=== PATIENT | male | born 1960 | race Two or more races ===

== ENCOUNTER 2025-06-08 15:43 | Emergency (ER) | payer OTHER ==
[~2025-06-08] VITALS: Ht 177.8 cm; Wt 100.0 kg
[2025-06-08 15:44] VITALS: BP 128/80; PULSE 100; RESP 14; TEMP 97.2; O2SAT 100
--- NOTE | 2025-06-08 16:27 | ED.PDOC ---
Back pain HPI HPI Comments 65 year old male presents to the emergency department with a chief complaint of RT ribs pain s/p fall onset 2 days. Patient states he was walking, tripped, landed on a rock, hit RT ribs. He noticed pain worsens with exertion, deep breaths, coughing. No other symptoms or modifying factors present at this time. Denies LOC, head injury Denies fever chills Denies nausea vomiting diarrhea Denies numbness/tingling Chief Complaint: Rib Pain Time Seen by MD: 16:10 Reviewed Notes: Medications, Allergies Allergies: Coded Allergies: NO KNOWN ALLERGIES (Unverified , 06/08/25) Information Source: Patient Mode of Arrival: Ambulatory Timing: Days Duration: Since onset Severity: Moderate Prehospital treatment: None Quality: Sharp Onset: Fall Circumstance: Other History of: None Past Medical History PAST MEDICAL HISTORY: Denies Surgical History: Denies all surgeries Family History Family History: Reviewed,noncontributory to illness, No family hx of Cancer, No family hx of DM, No family hx of Heart aicha, No family hx of HTN, No family hx ofKidney aicha, No family hx of Liver aicha, No family hx of Lung aicha, No family hx of Stroke Social History Smoker: Non-Smoker Alcohol: Denies ETOH Use Drugs: Denies Drug Use Lives In: Home All Other Systems: Reviewed and Negative (as per HPI) Physical Exam General Appearance: Normal HEENT: Normal ENT Inspection, Pharynx Normal, TMs Normal Neck: Full Range of Motion, Non-Tender, Normal, Normal Inspection Respiratory: Chest Non-Tender, Lungs Clear, No Accessory Muscle Use, No Respiratory Distress, Normal Breath Sounds Cardiovascular: No Edema, No JVD, No Murmur, No Gallop, Normal Peripheral Pulses, Regular Rate/Rhythm Breast Exam: Deferred Gastrointestinal: No Organomegaly, Non Tender, No Pulsatile Mass, Normal Bowel Sounds, Soft Genitalia: Deferred Pelvic: Deferred Rectal: Deferred Extremities: No calf tenderness, Normal capillary refill, Normal inspection, Normal range of motion, Non-tender, No pedal edema Musculoskeletal : Apperance: Normal Neurologic: Alert, 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 Was a procedure done?: No Back Pain Differential Dx Differential Diagnosis: Fracture, Musculoskeletal Pain X-Ray, Labs, Meds, VS Vital Signs Date Time Temp Pulse Resp B/P (MAP) Pulse Ox O2 Delivery O2 Flow Rate FiO2 06/08/25 15:44 97.2 100 14 128/80 100 97.2 [place] [id number] Ph: [phone] DIAGNOSTIC IMAGING Diagnostic Imaging Report : [id number] Signed PATIENT: NIHARIKA DUKE ACCT: [id number] UNIT: [id number] : 1960 LOC: ER ROOM / BED: / AGE / SEX: 65 / M ADM STATUS: REG ER SERVICE 28 ORDERING PHYSICIAN: MARII WILKINSON NP PROCEDURE(s): RRIBS - R RIB XRAY REASON: r/o racture ORDER NUMBER(s): [id number], ACCESSION NUMBER(s): [id number] EXAMINATION: XY R RIB XRAY INDICATION: Trauma r/o racture COMPARISON: None TECHNIQUE: Frontal view of the chest and <5 views of the right ribs history FINDINGS/IMPRESSION: No focal consolidation, pleural effusion or significant pneumothorax. Normal cardiomediastinal silhouette. Linear lucency in the right 9th rib may represent a nondisplaced fracture versus artifact. Correlate with point tenderness. ATED BY: DEMETRA MUÑOZ MD DICTATED DATE/TIME: 06/08/251706 SIGNED BY: DEMETRA MUÑOZ MD SIGNED DATE/TIME: 06/08/251706 CC: X-Ray, Labs, Meds, VS Comment 65 year old male presents to the emergency department with a chief complaint of RT ribs pain s/p fall onset 2 days. Diagnostic imaging ordered by me and results interpreted by radiology : R RIB XRAY: IMPRESSION: No focal consolidation, pleural effusion or significant pneumothorax. Normal cardiomediastinal silhouette. Linear lucency in the right 9th rib may represent a nondisplaced fracture versus artifact. Correlate with point tenderness. On reevaluation, patient had symptomatic improvement. Patient is stable for discharge at this time. External notes reviewed. Test results and diagnostic imaging interpreted. All diagnostic findings, discharge care, education and instructions provided Follow-up with PCP in 2 to 3 days For pain patient was advised to take [id number] Tylenol ibuprofen Patient verbalized understanding and agreed to treatment plan Vital signs stable, afebrile, no acute distress noted Patient ambulatory with strong steady gait Advised to return precautions for any new or worsening symptoms, return to ER immediately for re-evaluation Patient is aware that the purpose of this visit was for an acute medical emergency requiring emergent stabilization. Chronic conditions, including malignancies have not been ruled out. Patient is instructed to follow up with PCP as directed and discharge instructions for continued care and workup. If unable to arrange follow-up, patient is to return to the emergency department for reassessment. Patient (parent or legal guardian if applicable) was given verbal and written discharge instructions and acknowledges understanding. Additional MDM Review of External, Non-ED records: External records reviewed. Discussion with independent historian (EMS, family) history obtained from the patient/parents (if applicable) at bedside Chronic conditions affecting care: None Social determinants of health affecting care: None Consideration of admission (observation or admission): I considered escalation of care to admission for this patient, however given the reassuring workup, the patient is safe for outpatient management. Discussion with the Radiology: No Tests considered but not performed: Prescription medication considered but not given: Time of 1ST Reevaluation: 16:40 Reevaluation 1ST: Improved Patient Education/Counseling: Diagnosis, Treatment Family Education/Counseling: No Family Present SEPSIS Sepsis Screen Date sepsis recognized/suspect: Jun 08, 2025 Time Sepsis recognized/suspect: 1546 Recent Procedure: No On Antibiotic Therapy: No Respiratory Rate >20: No Heart Rate >90: No Temp<36 C (96.8 F) or >38.3 C: No SBP <90 or MAP <65 mmHG: No New Acute Mental Status Change: No Is the patient on CPAP, BIPAP,: No Physician Orders R Rib Xray (06/08/25 16:29) Vital Signs Date Time Temp Pulse Resp B/P (MAP) Pulse Ox O2 Delivery O2 Flow Rate FiO2 06/08/25 15:44 97.2 100 14 128/80 100 97.2 Departure 1 Departure Time of Disposition: 17:45 Impression: Primary Impression: Fracture of ninth rib Disposition: 01 HOME / SELF CARE / HOMELESS Condition: Stable Discharged With: Self Critical Care Note Critical Care Time?: No Stability Stability form required: No Heart Score Heart Score: Heart Score Response (Comments) Value History N/A 0 EKG N/A 0 Age N/A 0 Risk Factors N/A 0 Troponin N/A 0 Total 0 I personally scribed for MARII WILKINSON NP ([email or web address]) on 06/08/25 at 16:27. Electronically submitted by Jaimie Sim ([email or web address]). I personally scribed for MARII WILKINSON NP ([email or web address]) on 06/08/25 at 17:17. Electronically submitted by Jaimie Sim ([email or web address]). MARII WILKINSON NP Jun 08, 2025 16:27
--- NOTE | 2025-06-08 17:09 | DVH ---
EXAMINATION: XY R RIB XRAY INDICATION: Trauma r/o racture COMPARISON: None TECHNIQUE: Frontal view of the chest and <5 views of the right ribs history FINDINGS/IMPRESSION: No focal consolidation, pleural effusion or significant pneumothorax. Normal cardiomediastinal silhou ette. Linear lucency in the right 9th rib may represent a nondisplaced fracture versus artifact. Correlate with point tenderness.
== END 2025-06-08 18:27 | disposition home or self-care (01) ==
LOC: ER 15:54
DX: S22.31XA Fracture of one rib, right side, initial encounter for closed fracture (principal); W01.0XXA Fall on same level from slipping, tripping and stumbling without subsequent striking against object, initial encounter; Y93.01 Activity, walking, marching and hiking; Y92.89 Other specified places as the place of occurrence of the external cause; Y99.8 Other external cause status
CPT/HCPCS: 71101